=== PATIENT | male | born 1965 | race African-American/Black ===

== ENCOUNTER 2025-02-21 16:24 | Emergency (ER) | payer MEDICAID ==
[~2025-02-21] VITALS: Ht 180.3 cm; Wt 75.0 kg
[2025-02-21 16:27] VITALS: BP 133/77; TEMP 36.7; O2SAT 98
[2025-02-21 16:28] VITALS: PULSE 80; RESP 15; O2SAT 100
== END 2025-02-21 17:37 | disposition home or self-care (01) ==
LOC: ER 16:24
DX: S61.411D Laceration without foreign body of right hand, subsequent encounter (principal); X58.XXXD Exposure to other specified factors, subsequent encounter
CPT/HCPCS: 99281